=== PATIENT | male | born 1970 | race Hispanic/Latino ===

== ENCOUNTER → 2022-04-26 | Day surgery (SDC) | payer BC ==
[2022-04-24 13:38] LABS: BASOPHILS % 0.3 % (0.0-1.0); EOSINOPHILS % 0.1 % (0.0-6.0); HEMATOCRIT 47.6 % (38.2-49.6); HEMOGLOBIN 14.9 g/dL (14.0-18.0); LYMPHOCYTES # (AUTO) 2.3 (1.0-3.2); LYMPHOCYTES % 26.4 % (18.0-39.1); MEAN CORPUSCULAR HEMOGLOBIN 30.9 pg (28-32); MEAN CORPUSCULAR HGB CONC 31.3 g/dL (31-35); MEAN CORPUSCULAR VOLUME 98.8 fL (81-99); MONOCYTES # (AUTO) 0.6 (0.2-0.8); MONOCYTES % 6.9 % (4.4-11.3); NEUTROPHILS # (AUTO) 5.7 (2.1-6.9); NEUTROPHILS % 65.4 % (38.7-80.0); PLATELET COUNT 170 x10e3/uL (140-360); RED BLOOD COUNT 4.82 x10e6/uL (4.3-5.7)
[2022-04-24 14:07] LABS: ANION GAP 16.1 mmol/L (8-16); CALCIUM 9.5 mg/dL (8.4-10.2); CREATININE, SERUM 0.88 mg/dL (0.72-1.25); POTASSIUM 4.1 mmol/L (3.5-5.1)
[~2022-04-26] MED LIST: ACETAMINOPHEN 1000 MG/100 ML 100 ML IV ONE; ALTOPREV40 MG PO; BUPIVACAINE 0.5%/EPI 30 ML SDV INJ ONE; DEXAMETHASONE SOD PHOS INJ 4 MG/ML SDV ONE; DOXYCYCLINE HY100 MG PO; EPHEDRINE SULFATE INJ 50 MG/ML VIAL ONE; FENTANYL CITRATE/PF 100MCG/2 ML INJ ONE; HYDROCODONE/APAP 7.5MG-325MG 1 EA TAB ONE; KETOROLAC TROMETHAMINE 30 MG/ML VIAL ONE; LIDOCAINE HCL 2% LOCAL INJ 5 ML SDV VIAL INJ ONE; LISINOPRIL10 MG PO; METOPROLOL TAR100 MG PO; MIDAZOLAM HCL 2 MG/2 ML VIAL ONE; ONDANSETRON HCL INJ 2MG/ML 2ML 2 MG/ML VIAL ONE; POVIDONE IODINE 0.05% 0.05 % ML PO ONE; PREDNISONE20 MG PO; PROPOFOL IV EMULSION 10 MG/ML 20 ML VIAL ONE; ROCURONIUM BROMIDE 10 MG/ML 5ML VIAL IV ONE; SEVOFLURANE INHAL SOLN 250 ML PEN BTL ONE; SUGAMMADEX SODIUM 200 MG/2 ML VIAL IV ONE; TERBINAFINE HC250 MG PO
[2022-04-26 14:35] VITALS: BP 117/76
== END | disposition home or self-care (01) ==
LOC: OR 09:16
PROVIDERS: ATTEND Surgery
DX: K42.0 Umbilical hernia with obstruction, without gangrene (principal); I10 Essential (primary) hypertension; E78.5 Hyperlipidemia, unspecified; M19.90 Unspecified osteoarthritis, unspecified site; Z01.810 Encounter for preprocedural cardiovascular examination; Z01.812 Encounter for preprocedural laboratory examination; Z79.899 Other long term (current) drug therapy
CPT/HCPCS: 36415; 49594; 80048; 85025; 88304; 93005; C1781; J0131; J1100; J1885; J2001; J2250; J2405; J2704; J3010